=== PATIENT | female | born 1995 | race Caucasian/White ===

== ENCOUNTER 2020-05-01 23:39 | Emergency (ER) | payer BC, SELFPAY ==
[2020-05-01 23:40] VITALS: BP 145/71; PULSE 81; RESP 16; TEMP 36.4; O2SAT 100
[2020-05-01 23:57] LABS: Bacteria 0 SEEN /hpf (None Seen); Mucous, Urine 0 SEEN /hpf (<or=2+)
--- NOTE | 2020-05-01 23:57 | ED.VIS.GEN ---
History of Present Illness Chief Complaint: Abd Pain Informant: Patient Narrative: Presents with left lower pelvic pain she stated approximately 30 minutes ago she got some sharp pains in her left pelvis. She took a Midol couple hours ago. She is on her menses currently. These feel similar to menses related pains. She feels much better now. No urinary symptoms denies . No history of ovarian cyst. Denies fevers or chills or other problems. Current severity is mild. No previous abdominal surgeries. Past Medical History - Allergies and Home Meds Allergies/Adverse Reactions: Allergies lavender (Lavandula angustifolia) Allergy (Verified 05/01/20 23:43) Rash Primary Care Physician: Anjana Kaur MD [Primary Care Provider] - Prior records reviewed: Yes Past Medical History: None Surgical History: - - Reviewed Smoking Status: Never smoker Alcohol: None Drugs: None Review of Systems General: Denies: Chills, Fever, Sweats Eyes: Denies: Visual changes - bilaterally, Diplopia ENT: Denies: Rhinorrhea, Sore throat Cardiovascular: Denies: Chest pain, Palpitations Respiratory: Denies: Dyspnea, Cough, Dyspnea on exertion Gastrointestinal: Reports: Abdominal pain. Denies: Nausea, Vomiting, Diarrhea, Melena, Hematochezia Genitourinary: Denies: Dysuria, Hematuria, Frequency Musculoskeletal: Denies: Back pain, Extremity Pain Skin: Denies: Rash, Wounds Neurological: Denies: Headache, Weakness, Numbness Physical Exam Vital Signs/Narrative: Vital Signs Temp Pulse Resp BP Pulse Ox 05/01/20 23:40 97.6 F L 81 16 145/71 H 100 General: Well nourished, Well developed, No Acute Distress Head: Normocephalic, Atraumatic Eyes: Perrl, EOMI ENT: Moist mucous membranes, No rhinorrhea Neck: Supple, Nontender Cardiovascular: Regular rate, Regular rhythm, No murmurs Respiratory: No distress, CTA bilaterally, Chest nontender Abdomen: Soft, Nontender, Nondistended, Normal bowel sounds Back: Nontender, Normal Inspection Extremities: Nontender, No edema Skin: Normal color, No rash Neurological: Alert, Oriented x3, Cranial nerves II-XII grossly intact, Normal Strength, Normal Sensation Psychological: Normal affect, Normal Mood Diagnostic/Tx/Re-eval - Medical Decision Making Patient resting comfortably. Urinalysis and urine obtained. These are negative for infection or . Patient continues to rest comfortably on reevaluation. Abdominal exam is benign on reevaluation. At this time she may have an ovarian cyst versus. Cramps. I do not feel she needs imaging at this time or further work-up. She will follow-up as an outpatient. She may need outpatient ultrasound if this persist. She will take anti-inflammatories ED Disposition - Plan for ED Patient: Disposition: Home or Assisted Living Diagnosis: Pelvic pain Instructions: ED Pain, Acute, Uncertain Cause Referrals: Anjana Kaur MD [Primary Care Provider] - Digna Kraus MD [STAFF PHYSICIAN] -
[2020-05-02 00:20] LABS: Color, Urine Yellow (Yellow); Glucose, Dipstick NEGATIVE (Normal); Ketone-Dipstick Negative (Negative); Specific Gravity, Urine 1.015 (1.002-1.030); Urine Bilirubin Dipstick Negative (Negative); Urine Clarity Sl Cldy (Clear)
[2020-05-02 00:21] LABS: Internal QC Validated? YES +Cl - CLEAR BKGD; Leukocyte Esterase-Dipstick 25 /ul (Negative); Nitrite-Dipstick Negative (Negative); Occult Blood-Urine 250 /ul (Negative); Pregnancy, Urine Negative Negative; Protein-Dipstick Negative (Negative); Red Blood Cells-Urine 50-100 SEEN /hpf (0-5); Squamous Epithelial Cells - UA 0-5 SEEN /hpf (5-10); Urine Urobilinogen Normal (Normal); White Blood Cells 0-5 SEEN /hpf (0-5)
== END 2020-05-02 00:44 | disposition home or self-care (01) ==
PROVIDERS: Emergency Provider Emergency Medicine; PCP Family Medicine
DX: R10.2 Pelvic and perineal pain (principal)
CPT/HCPCS: 81001; 81025; 99282